=== PATIENT | male | born 1950 | race Caucasian/White ===

== ENCOUNTER 2019-12-22 08:13 | Outpatient (CLI) | payer MEDICARE, MEDICAID ==
[~2019-12-22] VITALS: Ht 182.9 cm; Wt 62.7 kg
[2019-12-22] VITALS (13 sets, daily range): BP systolic 131–174; BP diastolic 70–97
[2019-12-22 08:42] LABS: ABSOLUTE RETIC # 62 10e9/uL (24-90); BASOPHILS % (AUTO) 1 % (0-10); EOSINOPHILS # (AUTO) 0.1 10^3/uL (0.0-0.3); EOSINOPHILS % (AUTO) 3 % (0-10); HEMATOCRIT 39 % (40-54); HEMOGLOBIN 13.6 g/dL (13.3-17.7); LYMPHOCYTES # (AUTO) 1.2 10^3/uL (1.0-4.0); LYMPHOCYTES % (AUTO) 33 % (12-44); MEAN CORPUSCULAR HEMOGLOBIN 34 pg (25-34); MEAN CORPUSCULAR HGB CONC 35 g/dL (32-36); MEAN CORPUSCULAR VOLUME 98 fL (80-99); MEAN PLATELET VOLUME 12.5 fL (9.0-12.2); MONOCYTES # (AUTO) 0.4 10^3/uL (0.0-1.0); MONOCYTES % (AUTO) 9 % (0-12); NEUTROPHILS % (AUTO) 54 % (42-75); PLATELET COUNT 119 10^3/uL (130-400); RETICULOCYTE % 1.56 % (0.50-2.40); WHITE BLOOD COUNT 3.7 10^3/uL (4.3-11.0)
[2019-12-22] MEDS ORDERED: NS IV 1000 ML 1,000 ML IV STA (08:49)
[2019-12-22] MEDS ORDERED: MIDAZOLAM 2 MG/2 ML (VERSED) VIAL ONE (08:53)
[2019-12-22] MEDS ORDERED: fentaNYL INJECTION 100 MCG/2 ML AMP ONE (08:53)
[2019-12-22] MEDS ORDERED: LIDOCAINE 1% INJ 20 ML 20 ML VIAL ONE (08:54)
[2019-12-22] MEDS ORDERED: NS IV 1000 ML 1,000 ML ONE (08:54)
[2019-12-22 08:59] LABS: INR 1.1 (0.8-1.4); PROTHROMBIN TIME PATIENT 14.3 SEC (12.2-14.7)
[2019-12-22] MEDS ORDERED: LIDOCAINE 1% INJ 20 ML 20 ML VIAL INJ ONE (09:00)
[2019-12-22] MEDS ORDERED: NS 100 ML (IVPB) BAG IV ONE (09:00)
[2019-12-22] MEDS ORDERED: fentaNYL INJECTION 100 MCG/2 ML AMP IVP ONE (09:00)
[2019-12-22] MEDS ORDERED: IOHEXOL 350 MG/ML 100 ML (OMNIPAQUE 350) VIAL IV ONE (09:00)
[2019-12-22] MEDS ORDERED: MIDAZOLAM 2 MG/2 ML (VERSED) VIAL IVP ONE (09:00)
[2019-12-22] MEDS ORDERED: HOLD METFORMIN - RECEIVED CONTRAST 20 ML VIAL IV SCH (09:00)
[2019-12-22 09:21] LABS: BAND NEUTROPHILS 0 %; BASOPHILS % (MANUAL) 3 %; EOSINOPHILS % (MANUAL) 1 %; LYMPHOCYTES % (MANUAL) 35 %; MONOCYTES % (MANUAL) 5 %; NEUTROPHILS % (MANUAL) 56 %; RBC MORPH NORMAL
--- NOTE | 2019-12-22 09:34 | Diagnostic Imaging Report ---
EXAMINATION: CT Chest and Abdomen with intravenous contrast. TECHNIQUE: Multiple contiguous axial images were obtained through the chest and abdomen after the uneventful administration of intravenous contrast. All CT scans use one or more of the following dose optimizing techniques: automated exposure control, MA and/or KvP adjustment based on a patient size and exam type, or iterative reconstruction. HISTORY: Pancytopenia COMPARISON: None available. FINDINGS: There is no edema or pneumonia. No pleural effusion. No pneumothorax. No suspicious nodules. Lungs are moderately emphysematous. There is no axillary or supraclavicular lymphadenopathy. There is no mediastinal lymphadenopathy. Heart size is normal. There are mild coronary artery calcifications. No pericardial effusion. Aorta is normal in caliber. The liver is normal without focal lesion. There is no biliary ductal dilation. Gallbladder is normal. Pancreas is normal. Spleen is normal. Adrenal glands are normal. The kidneys are normal. There is no hydronephrosis. Visualized bowel is normal in caliber without obstruction or inflammation. No free fluid or air. No abdominal lymphadenopathy. Aorta is normal in caliber without aneurysm. There are no suspicious osseus lesions. IMPRESSION: 1. No acute abnormality in the chest or abdomen. Dictated by: Dictated on workstation # [id number]
[2019-12-22] MEDS ORDERED: NS IV 500 ML 500 ML IV SCH (09:45)
--- NOTE | 2019-12-22 10:00 | NUR ---
biopsy dressing in place low middle back. scant bloody drainage noted. area circled with pen to monitor.
[2019-12-22] MEDS ORDERED: HYDROcodone/APAP 5 MG/325 MG (LORTAB) TAB PO PRN (10:15)
--- NOTE | 2019-12-22 10:17 | Pre-Op Note & Conscious Sedat ---
Pre-Operative Progress Note H&P Reviewed The H&P was reviewed, patient examined and no changes noted. Date H&P Reviewed: Dec 22, 2019 Time H&P Reviewed: 08:00 Pre-Op Diagnosis: pancytopenia Conscious Sedation Pre-Proced Time 08:00 ASA Score 2 For ASA 3 and 4: Consider anesthesia and medical clearance. Also, for patients with a history of failed moderate sedation consider anesthesia. Airway Lungs Heart ASA score ASA 1: a normal healthy patient ASA 2: a patient with a mild systemic disease (mid diabetes, controlled hypertension, obesity ASA 3: a patient with a severe systemic disease that limits activity (angina, COPD, prior Myocardial infarction) ASA 4: a patient with an incapacitating disease that is a constant threat to life (CHF, renal failure) ASA 5: a moribund patient not expected to survive 24 hrs. (ruptured aneurysm) ASA 6: a declared brain- patient whose organs are being harvested. For emergent operations, add the letter E after the classification Mallampati Classification Grade 2 Sedation Plan Analgesia, Amnesia, Plan communicated to team members, Discussed options with patient/fam, Discussed risks with patient/fam The patient is an appropriate candidate to undergo the planned procedure, sedation, and anesthesia. The patient immediately re-assessed prior to indication. HILARIA PITTS MD Dec 22, 2019 10:17
--- NOTE | 2019-12-22 10:24 | Diagnostic Imaging Report ---
INDICATION: Pancytopenia. Patient was brought to the CT suite, placed on table in the prone position. Axial imaging through the pelvis was performed to evaluate appropriate entry site. Procedure was performed utilizing conscious sedation with radiology nursing and constant patient monitoring. Patient was given a total of 50 mcg of fentanyl intravenously and 0.5 mg of Versed intravenously. Total procedure time was 7 minutes. Low back was prepped and draped in usual sterile fashion. Small amount of 1% lidocaine was utilized for local anesthesia. A bone marrow biopsy needle was advanced and placed with its tip along the posterior cortex of the right iliac bone. Bone marrow needle was advanced through the cortex utilizing a bone marrow drill. Two bone marrow aspirates were obtained. Next, the drill was reapplied and bone marrow core was obtained. Needle was removed and hemostasis was obtained using manual compression. Patient tolerated the procedure well and left the Department in stable condition. IMPRESSION: Successful CT-guided bone marrow aspiration and biopsy, utilizing conscious sedation. Dictated by: Dictated on workstation # [id number]
--- NOTE | 2019-12-22 11:00 | NUR ---
no change biopsy site dressing. no further drainage noted.
--- NOTE | 2019-12-22 12:00 | NUR ---
biospy dressing site unchanged. pt c/o some dizziness when standing. vss. daughter et pt report understanding to avoid strenuous activity today. seek care of dizziness doesn't resolve.
== END 2019-12-22 12:05 | disposition home or self-care (01) ==
LOC: RAD 08:13 → SDC 09:57 → RAD 12:05
PROVIDERS: ATTEND Internal Medicine Hematology & Oncology
DX: D61.818 Other pancytopenia (principal); E87.1 Hypo-osmolality and hyponatremia; R79.89 Other specified abnormal findings of blood chemistry; F10.10 Alcohol abuse, uncomplicated; Z72.0 Tobacco use
CPT/HCPCS: 36415; 38222; 71260; 74160; 77012; 85007; 85027; 85045; 85610; 85730; 96360; 99156

== ENCOUNTER 2019-12-28 13:59 | Outpatient (RCR) | payer MEDICARE, MEDICAID ==
[2019-12-20 13:55] LABS: BASOPHILS % (AUTO) 1 % (0-10); EOSINOPHILS # (AUTO) 0.1 10^3/uL (0.0-0.3); EOSINOPHILS % (AUTO) 3 % (0-10); HEMATOCRIT 35 % (40-54); HEMOGLOBIN 12.3 g/dL (13.3-17.7); LYMPHOCYTES % (AUTO) 32 % (12-44); MEAN CORPUSCULAR HEMOGLOBIN 35 pg (25-34); MEAN CORPUSCULAR HGB CONC 35 g/dL (32-36); MEAN CORPUSCULAR VOLUME 98 fL (80-99); MEAN PLATELET VOLUME 12.6 fL (9.0-12.2); MONOCYTES # (AUTO) 0.3 10^3/uL (0.0-1.0); MONOCYTES % (AUTO) 10 % (0-12); NEUTROPHILS # (AUTO) 1.7 10^3/uL (1.8-7.8); NEUTROPHILS % (AUTO) 53 % (42-75); PLATELET COUNT 104 10^3/uL (130-400); WHITE BLOOD COUNT 3.2 10^3/uL (4.3-11.0)
[2019-12-20 14:34] LABS: ALBUMIN 4.1 GM/DL (3.2-4.5); BILIRUBIN,TOTAL 0.5 MG/DL (0.1-1.0); CALCIUM 8.1 MG/DL (8.5-10.1); CREATININE SERUM 1.62 MG/DL (0.60-1.30); POTASSIUM 4.5 MMOL/L (3.6-5.0); TOTAL PROTEIN 6.7 GM/DL (6.4-8.2)
== END 2020-03-19 | disposition home or self-care (01) ==
LOC: ONC 13:59
PROVIDERS: ATTEND Internal Medicine Hematology & Oncology
DX: D61.818 Other pancytopenia (principal); E87.1 Hypo-osmolality and hyponatremia; F10.10 Alcohol abuse, uncomplicated; N17.9 Acute kidney failure, unspecified; Z90.49 Acquired absence of other specified parts of digestive tract; Z72.0 Tobacco use
CPT/HCPCS: 80053; 82728; 83540; 85025; G0463; 99213; 99214

== ENCOUNTER → 2020-06-13 | Outpatient (CLI) | payer MEDICARE, MEDICAID ==
--- NOTE | 2020-06-13 12:23 | Diagnostic Imaging Report ---
Bilateral knees at 11:37. Indication: Knee pain 3 views of each knee joint were obtained. There are no prior studies available for comparison. There is no fracture, dislocation or acute bony abnormality identified. The knee joints are fairly well-maintained. There is only mild tricompartmental degenerative disease of each knee joint. The soft tissues are unremarkable. There is no evidence for joint effusion. Impression: 1. There is no evidence for an acute bony abnormality. 2. There is only mild tricompartmental degenerative disease of each knee joint. Dictated by: Dictated on workstation # [id number]
== END ==
LOC: LAB FS 10:44
PROVIDERS: ATTEND Internal Medicine Infectious Disease
DX: M17.11 Unilateral primary osteoarthritis, right knee (principal); M17.12 Unilateral primary osteoarthritis, left knee

== ENCOUNTER 2021-11-08 10:16 | Emergency (ER) | payer MEDICARE, MEDICAID ==
[~2021-11-08] VITALS: Ht 182.8 cm; Wt 59.1 kg
[2021-11-08] MEDS ORDERED: NS IV 1000 ML 1,000 ML IV SCH (10:45)
[2021-11-08 10:50] VITALS: BP_SYST 115; BP_SYST 141; BP_SYST 169; BP_DIAS 62; BP_DIAS 75; BP_DIAS 85
[2021-11-08] MEDS ORDERED: TETANUS,DIPTH,PERTUSS P/F (BOOSTRIX) 0.5 ML VIAL IM ONE (11:00)
[2021-11-08 11:01] LABS: BASOPHILS % (AUTO) 0 % (0-10); EOSINOPHILS % (AUTO) 1 % (0-10); HEMATOCRIT 34 % (40-54); LYMPHOCYTES # (AUTO) 0.7 10^3/uL (1.0-4.0); LYMPHOCYTES % (AUTO) 15 % (12-44); MEAN CORPUSCULAR HEMOGLOBIN 34 pg (25-34); MEAN CORPUSCULAR HGB CONC 36 g/dL (32-36); MEAN CORPUSCULAR VOLUME 95 fL (80-99); MEAN PLATELET VOLUME 12.6 fL (9.0-12.2); MONOCYTES # (AUTO) 0.5 10^3/uL (0.0-1.0); MONOCYTES % (AUTO) 10 % (0-12); NEUTROPHILS # (AUTO) 3.3 10^3/uL (1.8-7.8); NEUTROPHILS % (AUTO) 73 % (42-75); PLATELET COUNT 81 10^3/uL (130-400); WHITE BLOOD COUNT 4.5 10^3/uL (4.3-11.0)
[2021-11-08 11:15] LABS: PROTHROMBIN TIME PATIENT 13.3 SEC (12.2-14.7)
[2021-11-08 11:23] LABS: ALANINE AMINOTRANSFERASE 16 U/L (0-55); ALBUMIN 4.5 GM/DL (3.2-4.5); ALKALINE PHOSPHATASE 71 U/L (40-136); BILIRUBIN,TOTAL 0.5 MG/DL (0.1-1.0); BUN/CREATININE RATIO 11; CALCIUM 8.9 MG/DL (8.5-10.1); CARBON DIOXIDE 23 MMOL/L (21-32); CHLORIDE 86 MMOL/L (98-107); CREATININE SERUM 1.02 MG/DL (0.60-1.30); GFR ESTIMATED 80; GLUCOSE 80 MG/DL (70-105); POTASSIUM 4.3 MMOL/L (3.6-5.0)
[2021-11-08 11:24] LABS: SODIUM 121 MMOL/L (135-145)
[2021-11-08 11:34] LABS: BILIRUBIN,URINE NEGATIVE (NEGATIVE); CLARITY,URINE CLEAR; COLOR,URINE YELLOW; GLUCOSE, URINE (UA) NEGATIVE (NEGATIVE); KETONES,URINE NEGATIVE (NEGATIVE); LEUKOCYTE ESTERASE ,URINE NEGATIVE (NEGATIVE); NITRITE,URINE NEGATIVE (NEGATIVE); PH,URINE 6.5 (5-9); PROTEIN,URINE NEGATIVE (NEGATIVE)
[2021-11-08 11:36] LABS: BACTERIA,URINE NEGATIVE /HPF
--- NOTE | 2021-11-08 11:39 | Diagnostic Imaging Report ---
Indication: Dizziness. Time of Exam: 11:21 AM No prior studies are available for comparison. Findings: The heart size is normal. The pulmonary vascularity is unremarkable. The lungs are clear. No infiltrate, effusion or pneumothorax is detected. Impression: No acute cardiopulmonary process is detected. Dictated by: Dictated on workstation # [id number]
--- NOTE | 2021-11-08 11:40 | Diagnostic Imaging Report ---
PROCEDURE: CT right upper extremity without contrast. TECHNIQUE: Multiple contiguous axial images were obtained through the right upper extremity without the use of intravenous contrast. Sagittal and coronal reformations were then performed. Auto Exposure Controls were utilized during the CT exam to meet ALARA standards for radiation dose reduction. INDICATION: Elbow edema and tenderness. No prior studies are available for comparison. There is extensive edema throughout the subcutaneous tissues of the posterior elbow. No superficial or deep soft tissue fluid collection or abscess is identified. No soft tissue gas is identified. There is an ununited enthesophyte at the tip of the olecranon. No acute fracture is identified. IMPRESSION: Subcutaneous edema. No fluid collection or soft tissue gas is identified. No acute bony abnormality is detected. Dictated by: Dictated on workstation # [id number]
[2021-11-08 11:45] LABS: AMPHETAMINE SCREEN, URINE NEGATIVE (NEGATIVE); BARBITURATE SCREEN URINE NEGATIVE (NEGATIVE); BENZODIAZEPINES SCREEN URINE NEGATIVE (NEGATIVE); CANNABINOID SCREEN, URINE NEGATIVE (NEGATIVE); COCAINE SCREEN URINE NEGATIVE (NEGATIVE); METHADONE STAT NEGATIVE (NEGATIVE); OPIATE SCREEN URINE NEGATIVE (NEGATIVE); OXYCODONE STAT NEGATIVE (NEGATIVE); PROPOXYPHENE STAT NEGATIVE (NEGATIVE); TRICYCLIC ANTIDEPRESSANTS SCRE NEGATIVE (NEGATIVE)
--- NOTE | 2021-11-08 12:01 | ED Neurological Problem ---
General Chief Complaint: Neurological Problems Stated Complaint: RT ARM SWELLING; DIZZINESS Nursing Triage Note: Patient presents to the ED with c/o dizziness and right elbow swelling. Reports right elbow swelling began 2 weeks ago was seen in urgent care today, the area was cultured, and he was started on an antibiotic. Reports dizziness started this afternoon and states, "I just don't feel right." Reports fall last night. Skin abrasions noted to left elbow. Denies loss of conciousness or head injury with fall. Source: patient, family Exam Limitations: other (Hard of hearing) History of Present Illness Date Seen by Provider: Nov 08, 2021 Time Seen by Provider: 11:57 Initial Comments 70-year-old male patient with history of drinking 6-8 beers a day states he had a fall on because of dizziness last night with some abrasion of left arm. Patient states he had swelling of right elbow for 2 weeks and was seen at urgent care this morning and had aspiration of the elbow and prescription for antibiotics was given that he did not start yet but he felt dizzy and he stated not feeling right. He called his daughter to bring him to the hospital. Patient states he had 1 episode of diarrhea this morning. Patient denies chest pain, shortness of breath, focal neurodeficit, blurred vision or tinnitus, fever and chills, COVID exposure. States that he had 2 can of beers yesterday and did not have alcohol today. Allergies and Home Medications Allergies Coded Allergies: Penicillins (Unverified Adverse Reaction, Unknown, 12/22/19) Patient Home Medication List Home Medication List Reviewed: Yes Review of Systems Review of Systems Constitutional: see HPI, dizziness, weakness Eyes: No Symptoms Reported Ears, Nose, Mouth, Throat: no symptoms reported Respiratory: no symptoms reported Cardiovascular: no symptoms reported Gastrointestinal: see HPI Genitourinary: no symptoms reported Musculoskeletal: see HPI Skin: see HPI Psychiatric/Neurological: See HPI Endocrine: No Symptoms Reported All Other Systems Reviewed Negative Unless Noted: Yes Past Uuujjea-Suvols-Urgsoe Hx Patient Social History Tobacco Use?: Yes Tobacco type used: Cigarettes Smoking Status: Current Everyday Smoker Substance use?: No Alcohol Use?: Yes Alcohol type: Beer Alcohol Frequency: Daily Pt feels they are or have been: No Immunizations Up To Date First/Initial COVID19 Vaccinat: Yes Second COVID19 Vaccination Curry: Yes COVID19 Vaccine Machine Group Leader: Moderna Past Medical History Surgery/Hospitalization HX: Shayne mountain spotted fever; Arthritis Physical Exam Vital Signs Vital Signs - First Documented 11/08/21 10:36 Temp 36.3 Pulse 73 Resp 16 B/P (MAP) 177/79 (111) Pulse Ox 100 O2 Delivery Room Air Capillary Refill : Less Than 3 Seconds Height, Weight, BMI Height: '" Weight: lbs. oz. kg; 17.00 BMI Method: General Appearance: mild distress, thin HEENT: PERRL/EOMI, normal ENT inspection, pharynx normal Neck: non-tender, full range of motion, supple Respiratory: chest non-tender, lungs clear, normal breath sounds, no respiratory distress, no accessory muscle use Cardiovascular: regular rate, rhythm, no edema, no gallop, no JVD, no murmur Gastrointestinal: normal bowel sounds, non tender, soft, no organomegaly, no pulsatile mass Back: normal inspection, no CVA tenderness Extremities: swelling (Right elbow without joint effusion) Neurologic/Psychiatric: no motor/sensory deficits, alert, normal mood/affect, oriented x 3 Crainal Nerves: normal speech, PERRL, hearing deficit (R), hearing deficit (L) Motor/Sensory: no motor deficit, no sensory deficit Skin: other (Left arm and forearm abrasion and skin tears) Lymphatic: no adenopathy Focused Exam Lactate Level 11/08/21 10:55: Lactic Acid Level 1.86 Lactic Acid Level Laboratory Tests Test 11/08/21 10:55 Lactic Acid Level 1.86 MMOL/L (0.50-2.00) Progress/Results/Core Measures Results/Orders Lab Results Laboratory Tests Test 11/08/21 10:25 11/08/21 10:55 Range/Units Urine Color YELLOW Urine Clarity CLEAR Urine pH 6.5 5-9 Urine Specific [place] <=1.005 1.016-1.022 Urine Protein NEGATIVE NEGATIVE Urine Glucose (UA) NEGATIVE NEGATIVE Urine Ketones NEGATIVE NEGATIVE Urine Nitrite NEGATIVE NEGATIVE Urine Bilirubin NEGATIVE NEGATIVE Urine Urobilinogen 0.2 < = 1.0 MG/DL Urine Leukocyte Esterase NEGATIVE NEGATIVE Urine RBC (Auto) NEGATIVE NEGATIVE Urine RBC NONE /HPF Urine WBC NONE /HPF Urine Crystals NONE /LPF Urine Bacteria NEGATIVE /HPF Urine Casts NONE /LPF Urine Mucus NEGATIVE /LPF Urine Culture Indicated NO Urine Opiates Screen NEGATIVE NEGATIVE Urine Oxycodone Screen NEGATIVE NEGATIVE Urine Methadone Screen NEGATIVE NEGATIVE Urine Propoxyphene Screen NEGATIVE NEGATIVE Urine Barbiturates Screen NEGATIVE NEGATIVE Ur Tricyclic Antidepressants Screen NEGATIVE NEGATIVE Urine Phencyclidine Screen NEGATIVE NEGATIVE Urine Amphetamines Screen NEGATIVE NEGATIVE Urine Methamphetamines Screen NEGATIVE NEGATIVE Urine Benzodiazepines Screen NEGATIVE NEGATIVE Urine Cocaine Screen NEGATIVE NEGATIVE Urine Cannabinoids Screen NEGATIVE NEGATIVE White Blood Count 4.5 4.3-11.0 10^3/uL Red Blood Count 3.54 L 4.30-5.52 10^6/uL Hemoglobin 12.0 L 13.3-17.7 g/dL Hematocrit 34 L 40-54 % Mean Corpuscular Volume 95 80-99 fL Mean Corpuscular Hemoglobin 34 25-34 pg Mean Corpuscular Hemoglobin Concent 36 32-36 g/dL Red Cell Distribution Width 12.0 10.0-14.5 % Platelet Count 81 L 130-400 10^3/uL Mean Platelet Volume 12.6 H 9.0-12.2 fL Immature Granulocyte % (Auto) 0 % Neutrophils (%) (Auto) 73 42-75 % Lymphocytes (%) (Auto) 15 12-44 % Monocytes (%) (Auto) 10 0-12 % Eosinophils (%) (Auto) 1 0-10 % Basophils (%) (Auto) 0 0-10 % Neutrophils # (Auto) 3.3 1.8-7.8 10^3/uL Lymphocytes # (Auto) 0.7 L 1.0-4.0 10^3/uL Monocytes # (Auto) 0.5 0.0-1.0 10^3/uL Eosinophils # (Auto) 0.0 0.0-0.3 10^3/uL Basophils # (Auto) 0.0 0.0-0.1 10^3/uL Immature Granulocyte # (Auto) 0.0 0.0-0.1 10^3/uL Percent Immature Platelet Fraction 21.2 H 0.0-7.6 % Prothrombin Time 13.3 12.2-14.7 SEC INR Comment 1.0 0.8-1.4 Sodium Level 121 *L 135-145 MMOL/L Potassium Level 4.3 3.6-5.0 MMOL/L Chloride Level 86 L 98-107 MMOL/L Carbon Dioxide Level 23 21-32 MMOL/L Anion Gap 12 5-14 MMOL/L Blood Urea Nitrogen 11 7-18 MG/DL Creatinine 1.02 0.60-1.30 MG/DL Estimat Glomerular Filtration Rate 80 BUN/Creatinine Ratio 11 Glucose Level 80 70-105 MG/DL Lactic Acid Level 1.86 0.50-2.00 MMOL/L Calcium Level 8.9 8.5-10.1 MG/DL Corrected Calcium 8.5 8.5-10.1 MG/DL Magnesium Level 2.0 1.6-2.4 MG/DL Total Bilirubin 0.5 0.1-1.0 MG/DL Aspartate Amino Transf (AST/SGOT) 38 H 5-34 U/L Alanine Aminotransferase (ALT/SGPT) 16 0-55 U/L Alkaline Phosphatase 71 40-136 U/L Troponin I < 0.30 <0.30 NG/ML Total Protein 7.0 6.4-8.2 GM/DL Albumin 4.5 3.2-4.5 GM/DL Serum Alcohol 11 H <10 MG/DL SARS-CoV-2 RNA (RT-PCR) Not Detected Not Detecte My Orders Orders - VENKATA GOMES MD Cbc With Automated Diff (11/08/21 10:45) Comprehensive Metabolic Panel (11/08/21 10:45) Urinalysis (11/08/21 10:45) Urine Culture (11/08/21 10:45) Protime With Inr (11/08/21 10:45) Chest 1 View Ap/Pa Only (11/08/21 10:45) Ed Iv/Invasive Line Start (11/08/21 10:45) Ekg Tracing (11/08/21 10:45) Troponin I Elena (11/08/21 10:45) Lactic Acid Analyzer (11/08/21 10:45) Magnesium (11/08/21 10:45) Alcohol (11/08/21 10:45) Drug Screen Stat (Urine) (11/08/21 10:45) Covid 19 Inhouse Test (11/08/21 10:45) Orthostatic Vital Signs (Adult (11/08/21 10:45) Ct Extremity Upper Right Wo (11/08/21 10:45) Ns Iv 1000 Ml (Sodium Chloride 0.9%) (11/08/21 10:45) Dipht,Pertuss(Acell),Tet Adult (Boostrix (11/08/21 11:00) Ct Head Wo (11/08/21 11:32) Medications Given in ED Current Medications Medications Dose Ordered Sig/Larisa Route Start Time Stop Time Status Last Admin Dose Admin Diphtheria/ Tetanus/Acell Pertussis 0.5 ml ONCE ONCE IM 11/08/21 11:00 11/08/21 11:01 DC 11/08/21 11:06 0.5 ML Vital Signs/I&O 11/08/21 11/08/21 11/08/21 10:36 10:50 12:53 Temp 36.3 36.3 Pulse 73 73 75 72 81 Resp 16 16 B/P (MAP) 177/79 (111) 169/85 (113) 179/68 141/75 (97) 115/62 (79) Pulse Ox 100 100 O2 Delivery Room Air Room Air Blood Pressure Mean: 79 Progress Progress Note : Progress Note Evaluation of patient in ER showed 70-year-old male patient with complaining of dizziness. Patient had positive orthostatic vitals and treated with 1 L of normal saline. Labs showed hemoglobin of 12 and sodium of 121. Patient daughter states that he has had history of hyponatremia previously. Patient had dilutional hyponatremia and drinking 6-8 beers a day. After IV fluid patient felt better and ambulated without problem or dizziness and decided to go home. Patient advised to gradually stop drinking alcohol and increase salt intake and return to ER as needed. Watson wrap for right elbow was ordered Initial ECG Impression Date: Nov 08, 2021 Initial ECG Impression Time: 10:30 Initial ECG Intervals EKG interpreted by me. EKG at 1030 showed sinus rhythm with first-degree AV block and occasional supraventricular premature complexes at rate of 68, VT interval of 217 and QT interval of 392, tall P wave in anteroseptal leads, no a cute ST and T wave elevation. CT Results/Progress Notes CT of right upper extremity interpreted by radiologist and reviewed by me and showed: NAME: MERY ESPINAL [facility] REC#: [id number] PT STATUS: DEP ER : 1950 PHYSICIAN: VENKATA GOMES MD ADMIT DATE: 11/08/21/ER FS Signed Date of Exam:11/08/21 CT HEAD WO PROCEDURE: CT head without contrast. TECHNIQUE: Multiple contiguous axial images were obtained through the brain without the use of intravenous contrast. Auto Exposure Controls were utilized during the CT exam to meet ALARA standards for radiation dose reduction. INDICATION: Dizziness. No prior studies are available for comparison. There is some mild prominence of ventricles and sulci consistent with cerebral atrophy. No sulcal effacement or midline shift is identified. No acute intra-axial or extra-axial hemorrhage is detected. Cisterns are patent. The visualized paranasal sinuses are clear. IMPRESSION: Cerebral atrophy. No acute intracranial process is detected. Dictated by: Dictated on workstation # [id number] Dict: 11/08/21 1200 Trans: 11/08/21 1610 CVB [id number] Interpreted by: HILARIA PITTS MD Electronically signed by: HILARIA PITTS MD 11/08/211609 CT head interpreted by radiologist and reviewed by me and showed: NAME: MERY Loyd [facility] REC#: [id number] PT STATUS: DEP ER : 1950 PHYSICIAN: VENKATA GOMES MD ADMIT DATE: 11/08/21/ER FS Signed Date of Exam:11/08/21 CT EXTREMITY UPPER RIGHT WO PROCEDURE: CT right upper extremity without contrast. TECHNIQUE: Multiple contiguous axial images were obtained through the right upper extremity without the use of intravenous contrast. Sagittal and coronal reformations were then performed. Auto Exposure Controls were utilized during the CT exam to meet ALARA standards for radiation dose reduction. INDICATION: Elbow edema and tenderness. No prior studies are available for comparison. There is extensive edema throughout the subcutaneous tissues of the posterior elbow. No superficial or deep soft tissue fluid collection or abscess is identified. No soft tissue gas is identified. There is an ununited enthesophyte at the tip of the olecranon. No acute fracture is identified. IMPRESSION: Subcutaneous edema. No fluid collection or soft tissue gas is identified. No acute bony abnormality is detected. Dictated by: Dictated on workstation # [id number] Dict: 11/08/21 1135 Trans: 11/08/210 CVB [id number] Interpreted by: HILARIA PITTS MD Electronically signed by: HILARIA PITTS MD 11/08/21 161 Chest x-ray interpreted by radiologist and reviewed by me and showed: NAME: MERY ESPINAL [facility] REC#: [id number] PT STATUS: DEP ER : 1950 PHYSICIAN: VENKATA GOMES MD ADMIT DATE: 11/08/21/ER FS Signed Date of Exam:11/08/21 CHEST 1 VIEW AP/PA ONLY Indication: Dizziness. Time of Exam: 11:21 AM No prior studies are available for comparison. Findings: The heart size is normal. The pulmonary vascularity is unremarkable. The lungs are clear. No infiltrate, effusion or pneumothorax is detected. Impression: No acute cardiopulmonary process is detected. Dictated by: Dictated on workstation # [id number] Dict: 11/08/21 1137 Trans: 11/08/21 1609 CVB [id number] Interpreted by: HILARIA PITTS MD Electronically signed by: HILARIA PITTS MD 11/08/21 1609 Departure Impression Primary Impression: Dilutional hyponatremia Additional Impressions: Dizziness Alcohol abuse Swelling of right elbow Fall at home Qualified Codes: W19.XXXS - Unspecified fall, sequela; Y92.009 - Unspecified place in unspecified non-institutional (private) residence as the place of occurrence of the external cause Chronic anemia Disposition: 01 HOME, SELF-CARE Condition: Improved Departure-Patient Inst. Decision time for Depature: 12:47 Referrals: ANNA DIAMOND APRN (PCP) Primary Care Physician [facility]/ (Family) Primary Care Physician Patient Instructions: Hyponatremia, Dizziness, Nonvertigo, (DC), Effects of Alcohol on Your Health, Alcohol Use Disorder ED Add. Discharge Instructions: Quit drinking alcohol gradually Increase your salt intake Follow-up with your primary care physician in 2 or 3 days Return to ER as needed All discharge instructions reviewed with patient and/or family. Voiced understanding. VENKATA GOMES MD Nov 08, 2021 12:01
[2021-11-08 12:53] VITALS: BP 179/68
== END 2021-11-08 12:52 | disposition home or self-care (01) ==
LOC: EDUNIT# 10:16 → ER FS 10:17
DX: S51.812A Laceration without foreign body of left forearm, initial encounter (principal); M79.89 Other specified soft tissue disorders; D64.9 Anemia, unspecified; F10.10 Alcohol abuse, uncomplicated; E87.1 Hypo-osmolality and hyponatremia; F17.210 Nicotine dependence, cigarettes, uncomplicated; Z23 Encounter for immunization; Z20.822 Contact with and (suspected) exposure to COVID-19; W18.30XA Fall on same level, unspecified, initial encounter; Y92.008 Other place in unspecified non-institutional (private) residence as the place of occurrence of the external cause
CPT/HCPCS: 36415; 70450; 71045; 73200; 80053; 80306; 81000; 83605; 83735; 84484; 85025; 85610; 87088; 87636; 93005; 99284; G0480; 80320; 90715

== ENCOUNTER 2022-03-04 10:10 | Emergency (ER) | payer MEDICARE, MEDICAID ==
[2022-03-04] MEDS ORDERED: NS IV 1000 ML 1,000 ML IV STA (10:20)
[2022-03-04 10:52] LABS: BASOPHILS % (AUTO) 1 % (0-10); EOSINOPHILS % (AUTO) 2 % (0-10); HEMATOCRIT 34 % (40-54); HEMOGLOBIN 12.3 g/dL (13.3-17.7); LYMPHOCYTES % (AUTO) 36 % (12-44); MEAN CORPUSCULAR HEMOGLOBIN 34 pg (25-34); MEAN CORPUSCULAR HGB CONC 36 g/dL (32-36); MEAN CORPUSCULAR VOLUME 94 fL (80-99); MEAN PLATELET VOLUME 13.2 fL (9.0-12.2); MONOCYTES # (AUTO) 0.2 10^3/uL (0.0-1.0); MONOCYTES % (AUTO) 9 % (0-12); NEUTROPHILS # (AUTO) 1.4 10^3/uL (1.8-7.8); NEUTROPHILS % (AUTO) 52 % (42-75); PLATELET COUNT 69 10^3/uL (130-400); WHITE BLOOD COUNT 2.7 10^3/uL (4.3-11.0)
--- NOTE | 2022-03-04 10:53 | Diagnostic Imaging Report ---
EXAMINATION: Chest 1 view HISTORY: chest pain, dizzy COMPARISON: 11/08/2021. FINDINGS: Heart size and pulmonary vasculature are normal. The lungs are clear without consolidation, pleural effusion, or pneumothorax. The osseous structures are intact. IMPRESSION: 1. No acute radiographic abnormality in the chest. Dictated by: Dictated on workstation # [id number]
--- NOTE | 2022-03-04 10:59 | Diagnostic Imaging Report ---
EXAMINATION: CT head without contrast. TECHNIQUE: Multiple contiguous axial images were obtained through the brain without the use of intravenous contrast. All CT scans use one or more of the following dose optimizing techniques: automated exposure control, MA and/or KvP adjustment based on patient size and exam type or iterative reconstruction. HISTORY: Dizziness COMPARISON: 11/08/2021 FINDINGS: Mild diffuse cerebral volume loss with proportional enlargement of the ventricles and sulci. Mild hypodensities throughout the supratentorial white matter of both cerebral hemispheres. No acute intracranial hemorrhage or abnormal extra-axial fluid collections are present. No hyperdense vessel. The calvarium is intact. The mastoid air cells are clear. The visualized paranasal sinuses are clear. The orbits are normal. IMPRESSION: 1. No acute intracranial abnormality. 2. Chronic microangiopathy and volume loss. Dictated by: Dictated on workstation # [id number]
[2022-03-04 11:02] LABS: PROTHROMBIN TIME PATIENT 13.2 SEC (12.2-14.7)
--- NOTE | 2022-03-04 11:03 | ED General ---
General Chief Complaint: Chest Pain Stated Complaint: CP Nursing Triage Note: REPORTS CHEST PAIN THAT STARTED ABOUT 0930 THIS AM. PT REPORTS DIZZINESS WITH THE CHEST PAIN THIS AM. PT ARRIVED BY EMS AND REPORTS RELIEF OF CHEST PAIN. Source of Information: Patient, EMS History of Present Illness Date Seen by Provider: Mar 04, 2022 Time Seen by Provider: 10:12 Initial Comments 71-year-old male presenting by EMS from home with complaints of chest pain and dizziness that started around 930 this morning. He states that when EMS arrived the chest pain resolved. He had no nausea, vomiting, change in vision, weakness in his arms or legs. He states that he does drink alcohol every day. He thinks he has had a low calcium in the past. He denies any head injury or trauma. He has had similar symptoms in the past and says it was due to his calcium being low. He has chronic cough and feels it is no worse than usual. No fever or chills. Timing/Duration: 1-3 Hours Severity: Moderate Modifying Factors: worse with Movement Associated Systoms: Chest Pain, Cough (chronic); No Diaphoresis, No Fever/Chills, No Headaches, No Nausea/Vomiting, No Seizure, No Shortness of Air, No Syncope; Weakness (generalized) Allergies and Home Medications Allergies Coded Allergies: Penicillins (Unverified Adverse Reaction, Unknown, 12/22/19) Patient Home Medication List Home Medication List Reviewed: Yes Review of Systems Review of Systems Constitutional: No chills; dizziness; No fever EENTM: No ear discharge, No ear pain, No vision loss, No nose congestion Respiratory: see HPI Cardiovascular: see HPI Gastrointestinal: No nausea, No vomiting Genitourinary: No dysuria Musculoskeletal: no symptoms reported Skin: No rash Psychiatric/Neurological: Denies Headache, Denies Numbness; Weakness (generalized) Past Pepxnql-Gdfodv-Ezqsrp Hx Patient Social History Tobacco Use?: Yes Tobacco type used: Cigarettes Smoking Status: Current Everyday Smoker Use of E-Cig and/or Vaping dev: No Substance use?: No Alcohol Use?: Yes Alcohol type: Beer Alcohol Frequency: Daily Pt feels they are or have been: No Immunizations Up To Date First/Initial COVID19 Vaccinat: Yes Second COVID19 Vaccination Curry: Yes Third COVID19 Vaccination Date: Yes Past Medical History Surgery/Hospitalization HX: Sh[place]ne mountain spotted fever; Arthritis, Alcoholism Physical Exam Vital Signs Vital Signs - First Documented 03/04/22 10:10 Temp 35.7 Pulse 67 Resp 23 B/P (MAP) 158/76 (103) Pulse Ox 100 O2 Delivery Room Air Capillary Refill : Less Than 3 Seconds Height, Weight, BMI Height: '" Weight: lbs. oz. kg; 17.00 BMI Method: General Appearance: No Apparent Distress, Chronically ill HEENT: PERRL/EOMI, Pharynx Normal Neck: Full Range of Motion, Normal Inspection, Non Tender, Supple Respiratory: Chest Non Tender, No Accessory Muscle Use, No Respiratory Distress, Decreased Breath Sounds Cardiovascular: Regular Rate, Rhythm, Normal Peripheral Pulses Gastrointestinal: Normal Bowel Sounds, No Pulsatile Mass, Non Tender, Soft Rectal: Deferred Extremity: Normal Capillary Refill, Normal Inspection, No Pedal Edema Neurologic/Psychiatric: Alert, Oriented x3, cloud engagement partner II-XII Norm as Tested Skin: Warm/Dry, Other (skin is dark brown and leathery all over) Progress/Results/Core Measures Suspected Sepsis SIRS Temperature: Pulse: 67 Respiratory Rate: 23 Laboratory Tests 03/04/22 10:18: White Blood Count 2.7L Blood Pressure 158 /76 Mean: 103 Laboratory Tests 03/04/22 10:18: Creatinine 1.30, INR Comment 1.0, Platelet Count 69L, Total Bilirubin 0.7 Results/Orders Lab Results Laboratory Tests Test 03/04/22 10:18 03/04/22 10:48 Range/Units White Blood Count 2.7 L 4.3-11.0 10^3/uL Red Blood Count 3.64 L 4.30-5.52 10^6/uL Hemoglobin 12.3 L 13.3-17.7 g/dL Hematocrit 34 L 40-54 % Mean Corpuscular Volume 94 80-99 fL Mean Corpuscular Hemoglobin 34 25-34 pg Mean Corpuscular Hemoglobin Concent 36 32-36 g/dL Red Cell Distribution Width 12.1 10.0-14.5 % Platelet Count 69 L 130-400 10^3/uL Mean Platelet Volume 13.2 H 9.0-12.2 fL Immature Granulocyte % (Auto) 1 % Neutrophils (%) (Auto) 52 42-75 % Lymphocytes (%) (Auto) 36 12-44 % Monocytes (%) (Auto) 9 0-12 % Eosinophils (%) (Auto) 2 0-10 % Basophils (%) (Auto) 1 0-10 % Neutrophils # (Auto) 1.4 L 1.8-7.8 10^3/uL Lymphocytes # (Auto) 1.0 1.0-4.0 10^3/uL Monocytes # (Auto) 0.2 0.0-1.0 10^3/uL Eosinophils # (Auto) 0.0 0.0-0.3 10^3/uL Basophils # (Auto) 0.0 0.0-0.1 10^3/uL Immature Granulocyte # (Auto) 0.0 0.0-0.1 10^3/uL Percent Immature Platelet Fraction 22.4 H 0.0-7.6 % Prothrombin Time 13.2 12.2-14.7 SEC INR Comment 1.0 0.8-1.4 Activated Partial Thromboplast Time 25 24-35 SEC Sodium Level 123 *L 135-145 MMOL/L Potassium Level 4.0 3.6-5.0 MMOL/L Chloride Level 88 L 98-107 MMOL/L Carbon Dioxide Level 19 L 21-32 MMOL/L Anion Gap 16 H 5-14 MMOL/L Blood Urea Nitrogen 12 7-18 MG/DL Creatinine 1.30 0.60-1.30 MG/DL Estimat Glomerular Filtration Rate 59 BUN/Creatinine Ratio 9 Glucose Level 93 70-105 MG/DL Calcium Level 9.1 8.5-10.1 MG/DL Corrected Calcium 8.7 8.5-10.1 MG/DL Magnesium Level 2.0 1.6-2.4 MG/DL Total Bilirubin 0.7 0.1-1.0 MG/DL Aspartate Amino Transf (AST/SGOT) 40 H 5-34 U/L Alanine Aminotransferase (ALT/SGPT) 16 0-55 U/L Alkaline Phosphatase 53 40-136 U/L Troponin I < 0.30 <0.30 NG/ML Pro-B-Type Natriuretic Peptide 876.2 H <125.0 PG/ML Total Protein 7.1 6.4-8.2 GM/DL Albumin 4.5 3.2-4.5 GM/DL Lipase 44 8-78 U/L Serum Alcohol 32 H <10 MG/DL Influenza Type A (RT-PCR) Not Detected Not Detecte Influenza Type B (RT-PCR) Not Detected Not Detecte SARS-CoV-2 RNA (RT-PCR) Not Detected Not Detecte My Orders Orders - FRANCIS VAN MD Cbc With Automated Diff (03/04/22 10:20) Magnesium (03/04/22 10:20) Chest 1 View Ap/Pa Only (03/04/22 10:20) Ekg Tracing (03/04/22 10:20) Comprehensive Metabolic Panel (03/04/22 10:20) Protime With Inr (03/04/22 10:20) Partial Thromboplastin Time (03/04/22 10:20) O2 (03/04/22 10:20) Monitor-Rhythm Ecg Trace Only (03/04/22 10:20) Ed Iv/Invasive Line Start (03/04/22 10:20) Lipase (03/04/22 10:20) Troponin I Fs (03/04/22 10:20) Probnp Fs (03/04/22 10:20) Alcohol (03/04/22 10:20) Ns Iv 1000 Ml (Sodium Chloride 0.9%) (03/04/22 10:20) Ct Head Wo (03/04/22 10:23) Covid 19 Inhouse Test (03/04/22 10:30) Influenza A And B By Pcr (03/04/22 10:30) Vital Signs/I&O 03/04/22 03/04/22 10:10 12:29 Temp 35.7 35.7 Pulse 67 91 Resp 23 18 B/P (MAP) 158/76 (103) 171/76 Pulse Ox 100 100 O2 Delivery Room Air Room Air Capillary Refill : Less Than 3 Seconds Blood Pressure Mean: 103 Progress Note #1: Progress Note Order basic labs and electrocardiogram since he had chest pain earlier. CT scan of his head to evaluate for his dizziness. Ordered urine and urine drug screen as well as alcohol level. Give normal saline 1 L IV fluid bolus for hydration. Progress Note #2: Progress Note Labs shows chronic hyponatremia but slight improvement from October. He has a sodium of 123 is compared to the 121 4 months ago. He has alcohol level of 55. His white blood cell count is low at 2.7 and his hemoglobin is slightly low at 12.3. Chest x-ray did not show any acute process. His CT scan of the head showed atrophy but no acute intracranial process. Patient reported improvement in his dizziness with receiving treatment here in the ED. His cardiac enzymes were negative for acute ID. Counseled patient and family that he needs to quit drinking and to limit his fluid intake. Work with the clinic to help stop drinking and monitor his sodium levels to help come up on those. Counseled to return or follow-up if having worsening symptoms ECG Initial ECG Impression Date: Mar 04, 2022 Initial ECG Impression Time: 10:11 Initial ECG Rate: 96 Initial ECG Rhythm: Normal Sinus Initial ECG Comparisson: Unchanged (11/10/2021) Comment On my personal interpretation and review of his electrocardiogram is sinus rhythm with a rate of 96 bpm and a first-degree AV block with frequent PVCs. MS interval [address] elevation. Tall T waves are present. Prolonged QT interval with a QT interval of 423 ms and a QTc interval 476 ms. Overall appears similar to prior tracing from 11/10/2021. Diagnostic Imaging Diagonstic Imaging: Xray Plain Films/CT/US/NM/MRI: chest Comments [facility] by [employer] [place], [place] NAME: [employer] REC#: [id number] PT STATUS: REG ER : 1950 PHYSICIAN: FRANCIS VAN MD ADMIT DATE: 03/04/22/ER FS Signed Date of Exam:03/04/22 CHEST 1 VIEW AP/PA ONLY EXAMINATION: Chest 1 view HISTORY: chest pain, dizzy COMPARISON: 11/08/2021. FINDINGS: Heart size and pulmonary vasculature are normal. The lungs are clear without consolidation, pleural effusion, or pneumothorax. The osseous structures are intact. IMPRESSION: 1. No acute radiographic abnormality in the chest. Dictated by: Dictated on workstation # [id number] Dict: 03/04/22 1047 Trans: 03/04/221101 AS6 [id number] Interpreted by: DAE COOPER DO Electronically signed by: DAE COOPER DO 03/04/221101 Reviewed: Reviewed by Me Diagonstic Imaging: CT Plain Films/CT/US/NM/MRI: head Comments [facility] [employer] [place], [place] NAME: [employer] REC#: [id number] PT STATUS: REG ER : 1950 PHYSICIAN: FRANCIS VAN MD ADMIT DATE: 03/04/22/ER FS Draft Date of Exam:03/04/22 CT HEAD WO EXAMINATION: CT head without contrast. TECHNIQUE: Multiple contiguous axial images were obtained through the brain without the use of intravenous contrast. All CT scans use one or more of the following dose optimizing techniques: automated exposure control, MA and/or KvP adjustment based on patient size and exam type or iterative reconstruction. HISTORY: Dizziness COMPARISON: 11/08/2021 FINDINGS: Mild diffuse cerebral volume loss with proportional enlargement of the ventricles and sulci. Mild hypodensities throughout the supratentorial white matter of both cerebral hemispheres. No acute intracranial hemorrhage or abnormal extra-axial fluid collections are present. No hyperdense vessel. The calvarium is intact. The mastoid air cells are clear. The visualized paranasal sinuses are clear. The orbits are normal. IMPRESSION: 1. No acute intracranial abnormality. 2. Chronic microangiopathy and volume loss. Dictated on workstation # [id number] Dict: 03/04/22 1057 Trans: 03/04/22 1058 [facility] [id number] Interpreted by: DAE COOPER DO Electronically signed by: Reviewed: Reviewed by Me Departure Impression Primary Impression: Dizziness Additional Impressions: Dilutional hyponatremia Alcohol intoxication Qualified Codes: F10.929 - Alcohol use, unspecified with intoxication, unspecified Disposition: 01 HOME, SELF-CARE Condition: Stable Departure-Patient Inst. Decision time for Depature: 12:18 Referrals: ANNA DIAMOND APRN (PCP) Primary Care Physician [facility] (Family) Primary Care Physician Patient Instructions: Alcohol Intoxication ED, Dizziness, Adult ED, Alcohol Use Disorder ED, Hyponatremia (DC) Add. Discharge Instructions: Your tests to look for heart attack and stroke and pneumonia were negative. You do have chronic low sodium that is due to alcohol use. Trying to quit drinking alcohol and increase your sodium intake to help with this. Work with the clinic to monitor your sodium levels and help you stop drinking. Work with the clinic to help stop drinking and do not drink more than 48 ounces of water in a day. All discharge instructions reviewed with patient and/or family. Voiced understanding. FRANCIS VAN MD Mar 04, 2022 11:03
[2022-03-04 11:05] LABS: BILIRUBIN,TOTAL 0.7 MG/DL (0.1-1.0); CALCIUM 9.1 MG/DL (8.5-10.1); CREATININE SERUM 1.3 MG/DL (0.60-1.30)
[2022-03-04 11:06] LABS: ALBUMIN 4.5 GM/DL (3.2-4.5); TOTAL PROTEIN 7.1 GM/DL (6.4-8.2)
[2022-03-04 12:29] VITALS: BP 171/76
== END 2022-03-04 12:35 | disposition home or self-care (01) ==
LOC: EDUNIT# 10:10 → ER FS 10:13
DX: E87.1 Hypo-osmolality and hyponatremia (principal); F10.129 Alcohol abuse with intoxication, unspecified; F17.210 Nicotine dependence, cigarettes, uncomplicated; Z20.822 Contact with and (suspected) exposure to COVID-19
CPT/HCPCS: 36415; 70450; 71045; 80053; 83690; 83735; 83880; 84484; 85025; 85610; 85730; 87636; 93005; 93041; 99284; G0480; 80320

== ENCOUNTER → 2022-03-25 | Outpatient (CLI) | payer MEDICARE, MEDICAID ==
--- NOTE | 2022-03-25 10:56 | Diagnostic Imaging Report ---
EXAMINATION: CT chest without contrast (lung screening). TECHNIQUE: Multiple contiguous axial images were obtained through the chest without the use of intravenous contrast according to lung cancer screening protocol. All CT scans use one or more of the following dose optimizing techniques: automated exposure control, MA and/or KvP adjustment based on patient size and exam type or iterative reconstruction. HISTORY: 31 pack year history of smoking. COMPARISON: 12/22/2019 FINDINGS: Thyroid: The thyroid is normal. Mediastinum: Heart size is normal without significant pericardial effusion. Calcifications of the aorta and coronary vessels. Thoracic aorta is normal in caliber. No suspicious lymphadenopathy. Lungs and airways: There are background emphysematous changes of lungs without consolidation, pleural effusion, or pneumothorax. There is scarring within the lung apices. There is linear atelectasis or scarring within the lung bases. No suspicious pulmonary nodule. There are a few scattered calcified granulomas. There is mucus or fluid within the trachea. Upper abdomen: The subphrenic structures are normal. Musculoskeletal: Degenerative changes of the spine without suspicious osseous lesion or compression fracture. IMPRESSION: 1. No suspicious pulmonary nodules. Recommend continued annual low-dose CT screening. LUNG-RADS CATEGORY: 2 MODIFIER: S Dictated by: Dictated on workstation # [id number]
== END ==
LOC: CARD 10:00
PROVIDERS: ATTEND Nurse Practitioner Family
DX: I08.3 Combined rheumatic disorders of mitral, aortic and tricuspid valves (principal); I77.89 Other specified disorders of arteries and arterioles; Z87.891 Personal history of nicotine dependence; F10.10 Alcohol abuse, uncomplicated
CPT/HCPCS: 71271; C8929; 93306